=== PATIENT | male | born 1985 | race Caucasian/White ===

== ENCOUNTER 2017-11-10 18:55 | Emergency (ER) | payer SELFPAY ==
[2017-11-10 18:59] VITALS: BP 150/85; PULSE 89; RESP 14; TEMP 36.7; O2SAT 100
--- NOTE | 2017-11-10 19:33 | ED.SKABFB ---
HPI - Skin/Abscess/Foreign Bdy <DELMI Reeves - Last Filed: 11/10/17 22:26> General Chief complaint: Skin/Abscess/Foreign Body Stated complaint: RT LEG INFECTION History of Present Illness HPI narrative: 32-year-old healthy male here for complaint of redness to his right popliteal area for the last few days. He was treated by primary care office for cellulitis with Septra DS. Patient reports that his swelling to his posterior knee has not improved. He reports he has had purulent drainage from that area starting today. He states that he appears a couple days ago however he has not had any fevers over the past couple of days. Patient is ambulatory into the emergency room today however he has pain with extension of the right knee due to the swelling and to the popliteal area. He requests that the area be drained. He denies any other concerns or complaints. Related Data Home Medications Medication Instructions Recorded Confirmed sulfamethoxazole-trimethoprim 1 tab PO BID 11/10/17 11/10/17 Allergies Allergy/AdvReac Type Severity Reaction Status Date / Time No Known Drug Allergies Allergy Verified 11/10/17 19:03 Review of Systems <DELMI Reeves - Last Filed: 11/10/17 22:26> Constitutional Reports chills and Reports fever(s) Eyes Denies change in vision, Denies eye discharge, Denies irritation and Denies loss of vision Cardiovascular Denies chest pain, Denies irregular heart rhythm, Denies lightheadedness, Denies palpitations, Denies dyspnea, Denies dyspnea on exertion and Denies orthopnea Respiratory Denies cough, Denies dyspnea, Denies dyspnea on exertion and Denies wheezing Genitourinary Denies hematuria, Denies flank pain, Denies urinary incontinence and Denies urinary urgency Musculoskeletal Comments: Redness and abscess to the right posterior knee Integumentary/Breasts Denies pruritus, Denies erythema, Denies rash and Denies wounds Neurologic Denies loss of vision Endocrine Denies palpitations Allergic/Immunologic Denies wheezing Exam <DELMI Reeves - Last Filed: 11/10/17 22:26> Const General: cooperative and well developed Nutritional Appearance: well nourished Orientation: alert, awake, oriented x3 and not confused Eyes General: appearance normal, both eyes and all related structures Eyelids: eyelids normal Conjunctivae: conjunctivae normal Sclera: sclerae normal Pupils: PERRL EOM: EOM intact bilaterally Resp Effort & Inspection: normal respiratory effort, able to speak in complete sentences, no respiratory distress and no use of accessory muscles Auscultation: clear to auscultation bilaterally, no rales, no rhonchi and no wheezes Cardio Rate: regular rate Rhythm: regular rhythm Heart Sounds: no click, no gallops, no murmurs and no rubs Pulses: normal peripheral pulses Skin General: no rashes or lesions noted, No jaundice and No petechiae Extrem Other: Erythema to the right knee with swelling into a posterior popliteal area area approximately 10 cm x 5 cm. With small open lesion into a lateral posterior knee draining purulent drainage. Distal sensation is intact. Distal pulses are intact. Full range of motion with the exception of pain to the right knee due to swelling Procedures <DELMI Reeves - Last Filed: 11/10/17 22:26> Abscess I/D Site: other (Posterior right knee) Side (if applicable): right Local Anesthetic: lidocaine 1% Amount of anesthesia used (mL): 2 Technique: incised with #11 blade Amount of fluid expressed (mL): 30 Irrigation: Yes Packing used?: iodoform MDM - Skin/Abscess/Foreign Bdy <DELMI Reeves - Last Filed: 11/10/17 22:26> MDM Narrative Medical decision making narrative: Id was completed to a posterior right knee with good amount of purulent drainage expressed. Wound was packed with iodoform and dressed with gauze and stretch gauze. He was given IV infusion of vancomycin. He is instructed to follow up with primary care provider tomorrow or the next day for re-evaluation and repacking and evaluation of wound. Discussed inpatient services with IV antibiotics due to questionable efficacy of p.o. antibiotics patient would rather follow up with primary care provider in the next couple of days. Continue taking Septra as directed. For any worsening symptoms return to the emergency room Lab Data Result diagrams: 11/10/17 20:30 11/10/17 20:30 Lab Results 11/10/17 11/10/17 Range/Units 20:30 20:30 WBC 9.5 (4.5-11.0) X10^3/uL RBC 4.62 (4.5-5.9) X10^6/uL Hgb 14.5 (13.5-17.5) g/dL Hct 39.8 L (41-53) % MCV 86.1 (80-100) fL MCH 31.4 (26-34) PG MCHC 36.4 H (30-36) % RDW 13.4 (11.6-14.8) % Plt Count 217 (150-400) X10^3/uL Neut % (Auto) 84.0 H (50-75) % Lymph % (Auto) 9.1 L (25-40) % [place] % (Auto) 6.4 (3-14) % Eos % (Auto) 0.1 L (2-4) % Baso % (Auto) 0.4 (0-2) % Neut # (Auto) 7900 H (9395-3301) /uL Sodium 137 (137-145) mmol/L Potassium 4.0 (3.4-5.1) mmol/L Chloride 97.0 L (98-107) mmol/L Carbon Dioxide 29.0 (22-32) mmol/L BUN 13.0 (9-20) mg/dL Creatinine 0.80 (0.66-1.25) mg/dL Estimated GFR > 60.0 (>60) mL/min BUN/Creatinine Ratio 16.3 (6-22) Glucose 121 H (70-100) mg/dL Calcium 8.9 (8.4-10.2) mg/dL Total Bilirubin 0.8 (0.2-1.3) mg/dL AST 33 (17-59) IU/L ALT 38 (21-72) IU/L Alkaline Phosphatase 62 (38-126) U/L Total Protein 7.7 (6.3-8.2) g/dL Albumin 4.4 (3.5-5.0) g/dL Globulin 3.3 (1.7-4.1) g/dL Albumin/Globulin Ratio 1.3 (1.0-2.8) <Nicole Blancas, DO - Last Filed: 11/11/17 03:54> Lab Data Lab Results 11/10/17 11/10/17 Range/Units 20:30 20:30 WBC 9.5 (4.5-11.0) X10^3/uL RBC 4.62 (4.5-5.9) X10^6/uL Hgb 14.5 (13.5-17.5) g/dL Hct 39.8 L (41-53) % MCV 86.1 (80-100) fL MCH 31.4 (26-34) PG MCHC 36.4 H (30-36) % RDW 13.4 (11.6-14.8) % Plt Count 217 (150-400) X10^3/uL Neut % (Auto) 84.0 H (50-75) % Lymph % (Auto) 9.1 L (25-40) % [place] % (Auto) 6.4 (3-14) % Eos % (Auto) 0.1 L (2-4) % Baso % (Auto) 0.4 (0-2) % Neut # (Auto) 7900 H (5505-5080) /uL Sodium 137 (137-145) mmol/L Potassium 4.0 (3.4-5.1) mmol/L Chloride 97.0 L (98-107) mmol/L Carbon Dioxide 29.0 (22-32) mmol/L BUN 13.0 (9-20) mg/dL Creatinine 0.80 (0.66-1.25) mg/dL Estimated GFR > 60.0 (>60) mL/min BUN/Creatinine Ratio 16.3 (6-22) Glucose 121 H (70-100) mg/dL Calcium 8.9 (8.4-10.2) mg/dL Total Bilirubin 0.8 (0.2-1.3) mg/dL AST 33 (17-59) IU/L ALT 38 (21-72) IU/L Alkaline Phosphatase 62 (38-126) U/L Total Protein 7.7 (6.3-8.2) g/dL Albumin 4.4 (3.5-5.0) g/dL Globulin 3.3 (1.7-4.1) g/dL Albumin/Globulin Ratio 1.3 (1.0-2.8) Discharge Plan Departure Patient Disposition: Home, Self-Care Clinical Impression: Abscess of knee, right, Cellulitis Discharge Date/Time: 11/10/17 22:46 Interventions: ED Discharge Assessment Last Done: 11/10/17 22:45 Instructions: DI for Incision and Drainage of a Skin Abscess Activity Restrictions/Additional Instructions: Abscess to her right knee has been incised and drained today in the emergency room. You were given IV antibiotics in the emergency room. Continue taking antibiotics as prescribed. [id number] Tylenol or Motrin as needed for any discomfort. Follow up with primary care provider tomorrow or the next day for re-evaluation of wound and repacking. For any worsening symptoms return to the emergency room. Prescriptions: No Action sulfamethoxazole-trimethoprim 800-160 mg Tablet 1 tab PO BID RF: 0 Referrals: [facility] [Provider Group] Course <DELMI Reeves - Last Filed: 11/10/17 22:26> Orders Ordered: ED Orders 11/10/17 20:20 Wound Culture and Gram Stain Stat 11/10/17 20:30 Complete Blood Count AUTO DIFF Stat Comprehensive Metabolic Panel Stat Discontinued Medications Vancomycin HCl 1,500 mg/ (Sodium Chloride) 500 mls @ 333.333 mls/hr IV NOW ONE Stop: 11/10/17 20:15 Last Infusion: 11/10/17 22:44 Dose: 0 mls/hr Admin: 11/10/17 20:40 Dose: 333.333 mls/hr Last Vital Signs Temp 98.1 F 11/10/17 18:59 Pulse 80 11/10/17 22:29 Resp 13 11/10/17 22:29 BP 127/60 H 11/10/17 22:29 Pulse Ox 100 11/10/17 22:29 <Nicole Blancas DO - Last Filed: 11/11/17 03:54> Orders Ordered: ED Orders 11/10/17 20:20 Wound Culture and Gram Stain Stat 11/10/17 20:30 Complete Blood Count AUTO DIFF Stat Comprehensive Metabolic Panel Stat Discontinued Medications Vancomycin HCl 1,500 mg/ (Sodium Chloride) 500 mls @ 333.333 mls/hr IV NOW ONE Stop: 11/10/17 20:15 Last Infusion: 11/10/17 22:44 Dose: 0 mls/hr Admin: 11/10/17 20:40 Dose: 333.333 mls/hr Last Vital Signs Temp 98.1 F 11/10/17 18:59 Pulse 80 11/10/17 22:29 Resp 13 11/10/17 22:29 BP 127/60 H 11/10/17 22:29 Pulse Ox 100 11/10/17 22:29 <Nicole Blancas DO - Last Filed: 11/11/17 03:54> Sign out: I was immediately available in the department for consultation. Documentation has been reviewed. I agree with assessment and plan.
[2017-11-10] MEDS: VANCOMYCIN 1,500 MG in SODIUM CHLORIDE 0.9% 500 ML 333.333 ML IV (20:40)
[2017-11-10 20:45] LABS: Add Manual Diff / Slide Review NO; Basophils Percent Auto 0.4 % (0-2); Eosinophils Percent Auto 0.1 % (2-4); Hematocrit 39.8 % (41-53); Hemoglobin 14.5 g/dL (13.5-17.5); Lymphocytes Percent Auto 9.1 % (25-40); Mean Corpuscular HGB Conc 36.4 % (30-36); Mean Corpuscular Hemoglobin 31.4 PG (26-34); Mean Corpuscular Volume 86.1 fL (80-100); Monocytes Percent Auto 6.4 % (3-14); Neutrophils Absolute Auto 7900 /uL (3000-5900); Platelet Count 217 X10^3/uL (150-400); Red Blood Cell Count 4.62 X10^6/uL (4.5-5.9); Red Cell Distribution Width 13.4 % (11.6-14.8); White Blood Cell Count 9.5 X10^3/uL (4.5-11.0)
[2017-11-10 20:48] VITALS: BP 130/73; PULSE 84; RESP 14; O2SAT 100
[2017-11-10 20:56] LABS: Alanine Aminotransferase 38 IU/L (21-72); Albumin 4.4 g/dL (3.5-5.0); Albumin Globulin Ratio 1.3 (1.0-2.8); Alkaline Phosphatase 62 U/L (38-126); Aspartate Aminotransferase 33 IU/L (17-59); BUN Creatinine Ratio 16.3 (6-22); Bilirubin Total 0.8 mg/dL (0.2-1.3); Calcium 8.9 mg/dL (8.4-10.2); Estimated Glomerular Filt Rate > 60.0 mL/min (>60); Globulin 3.3 g/dL (1.7-4.1); Glucose 121 mg/dL (70-100); HEMOLYSIS < 15 (0-50); Sodium 137 mmol/L (137-145); Total Protein 7.7 g/dL (6.3-8.2)
[2017-11-10 22:29] VITALS: BP 127/60; PULSE 80; RESP 13; O2SAT 100
== END 2017-11-10 22:46 | disposition home or self-care (01) ==
PROVIDERS: Emergency Provider Nurse Practitioner Family
DX: L02.415 Cutaneous abscess of right lower limb (principal); L03.115 Cellulitis of right lower limb
CPT/HCPCS: 10060; 36591; 80053; 85025; 87070; 87077; 87186; 87205; 99283